=== PATIENT | male | born 1970 | race Caucasian/White ===

== ENCOUNTER 2017-12-15 11:59 | Outpatient (CLI) | payer OTHER ==
[~2017-12-15 11:59] MED LIST: KETO10TA2 PO; PEPCID20 MG PO
== END 2017-12-15 12:30 | disposition home or self-care (01) ==
LOC: NUCLEAR 11:59
DX: I82.90 Acute embolism and thrombosis of unspecified vein (principal); I87.2 Venous insufficiency (chronic) (peripheral); I73.9 Peripheral vascular disease, unspecified